=== PATIENT | male | born 1955 | race Caucasian/White ===

== ENCOUNTER 2016-07-04 16:22 | Emergency (ER) | payer OTHER ==
[2016-07-04 19:07] VITALS: BP 140/106
--- NOTE | 2016-07-04 19:39 | UC ---
General HPI - HPI Summary HPI Summary: The patient comes in today for: 1. Exhaustion, headaches, chills, arthralgia, hearing is sensitive, "eyes are sensitive to light": Onset: 3 days ago. Palliative/provocative: Aspirin and Tylenol has helped. Quality: Ache Region: head, joints. Severity: 5/10 Time: Constant. Associated symptoms: Ticks: He found ticks on his legs 3 days ago. He removed them with tweezers. He does not know how long they were there for sure but thinks that they were there a day or two. Fevers: None. Regular provider: Dr. Fontana Lyme disease: January of 2015. Basically, the patient came in today for me to start full treatment for Lyme disease based on his symptoms and the fact that he saw three ticks on him over the past week. The last two have formed red lesions (less than 1 cm in diameter ). He removed the ticks but did not keep them. * - History of Current Complaint Chief Complaint: UCGeneralIllness Stated Complaint: CHILLS, HEADACHE Time Seen by Provider: 07/04/16 19:22 Hx Obtained From: Patient - Allergy/Home Medications Allergies/Adverse Reactions: Allergies Allergy/AdvReac Type Severity Reaction Status Date / Time Penicillins Allergy Severe hallucinati Verified 10/26/12 18:00 on PMH/Surg Hx/FS Hx/Imm Hx Previously Healthy: No Endocrine History Of: Denies: Diabetes, Thyroid Disease, Hyperthyroidism, Hypothyroidism, Dyslipidemia Cardiovascular History Of: Reports: Hypertension - His physician took him recently off medications. Denies: Cardiac Disorders, Pacemaker/ICD, Myocardial Infarction, Congestive Heart Failure, Atrial Fibrillation, Deep Vein Thrombosis, Bleeding Disorders Respiratory History Of: Denies: COPD, Asthma, Bronchitis, Pneumonia, Pulmonary Embolism GI/ History Of: Denies: Gastroesophageal Reflux, Ulcer, Gastrointestinal Bleed, Gall Bladder Disease, Kidney Stones, Diverticulitis, Renal Disease, Urosepsis Neurological History Of: Denies: TIA, CVA, Dementia, Seizures, Migraine Psychological History Of: Reports: Depression Denies: Anxiety, Bipolar Disorder, Schizophrenia, Post Traumatic Stress Disorder Cancer History Of: Denies: Lung Cancer, Colorectal Cancer, Breast Cancer, Prostate Cancer, Cervical Cancer Other History Of: Negative For: HIV, Hepatitis B, Hepatitis C, Anticoagulant Therapy - Surgical History Surgical History: Yes Surgery Procedure, Year, and Place: tonsilectomy, hernia rpair, left varicoseal, - Family History Known Family History: Negative: None, Cardiac Disease, Hypertension - Social History Occupation: Unemployed Alcohol Use: Daily Substance Use Type: None Smoking Status (MU): Never Smoked Tobacco Review of Systems Constitutional: Negative Skin: Negative Eyes: Negative ENT: Negative Respiratory: Negative Cardiovascular: Negative Gastrointestinal: Negative Genitourinary: Negative Musculoskeletal: Arthralgia All Other Systems Reviewed And Are Negative: Yes Physical Exam Triage Information Reviewed: Yes Appearance: Well-Appearing, No Pain Distress, Well-Nourished Vital Signs: Initial Vital Signs Temp 98.3 F 07/04/16 19:01 Pulse 93 07/04/16 19:01 Resp 14 07/04/16 19:01 BP 140/106 07/04/16 19:01 Pulse Ox 99 07/04/16 19:01 Vital Signs Reviewed: Yes Eyes: Positive: Conjunctiva Clear. Negative: Discharge ENT: Positive: Hearing grossly normal. Negative: Pharyngeal erythema, Nasal congestion, Nasal drainage, TM bulging, TM dull, TM red, Tonsillar swelling, Tonsillar exudate Dental: Negative: Gross Decay/Caries @, Dental Fracture @ Neck: Positive: Supple, Nontender, No Lymphadenopathy. Negative: Nuchal Rigidity Respiratory: Positive: Chest non-tender, Lungs clear, No respiratory distress, No accessory muscle use. Negative: Crackles, Wheezing Cardiovascular: Positive: RRR, No Murmur Abdomen Description: Positive: Nontender, No Organomegaly, Soft. Negative: Distended, Guarding Musculoskeletal: Positive: Strength Intact, ROM Intact, No Edema Neurological: Positive: Alert, Muscle Tone Normal Psychological: Positive: Age Appropriate Behavior, Consolable Skin: Positive: rashes - He has two erythematous macular lesions--one on each leg less than 1 cm and uniform in color. No typical erythema migrans appearance. Diagnostics - Laboratory Diagnostic Studies Completed/Ordered: Review of laboratories show previous titers of Lyme disease. Course/Dx - Course Course Of Treatment: Patient told that there are many causes for the symptoms that he has and recommend looking further into finding the cause of his symptoms. He was told that Lyme disease could be this, but if he had negative titers with blood draws today, would pull into question his previous diagnosis. I did recommend Lyme titer/serology at this time. I offered him ibuprofen for symptomatic treatment and Doxycycline for prophylactic treatment. Many questions were answered and in the end he agreed. - Differential Dx - Multi-Symptom Provider Diagnoses: Fatigue. HIstory of tick bites Discharge - Discharge Plan Condition: Stable Disposition: HOME Patient Education Materials: Hypertension (ED), Lyme Disease (ED), Tick Bite ( ED), Fatigue (ED) Referrals: Behzad Fontana MD [Primary Care Provider] - 1 Week (Please see your primary care provider next week for further evaluation of your symptoms.)
[2016-07-04] MEDS ORDERED: Ibuprofen TAB* 400 MG PO ONE (20:19)
[2016-07-04] MEDS ORDERED: DOXYcycline CAP(*) 100 MG PO ONE (20:19)
== END 2016-07-04 20:50 | disposition home or self-care (01) ==
LOC: UCEAST 16:22
DX: R53.83 Other fatigue (principal); I10 Essential (primary) hypertension; F32.9 Major depressive disorder, single episode, unspecified; Z88.0 Allergy status to penicillin
CPT/HCPCS: 86618; 99212; A9270-GY; G0463